=== PATIENT | male | born 1950 | race Caucasian/White ===

== ENCOUNTER 2024-12-17 06:05 | Day surgery (SDC) | payer OTHER ==
[~2024-12-17] VITALS: Ht 182.9 cm; Wt 86.0 kg
[~2024-12-17 06:05] MED LIST: Hytrin1 MG PO; LOPE2C PO; MECL25 PO; METO50ER PO; ONDA4ODT MM; Valium5 MG PO; XARELTO20 MG PO; ZESTORETIC 20-1 EAC1 PO
[2024-12-17] MEDS ORDERED: GABA400 PO (06:21)
[2024-12-17] MEDS ORDERED: Prinivil10 MG PO (06:21)
[2024-12-17] MEDS ORDERED: FINA5 PO (06:21)
[2024-12-17] MEDS ORDERED: Flomax0.4 MG PO (06:22)
[2024-12-17] MEDS ORDERED: NS 1,000 ML IV ONE (06:37)
[2024-12-17 06:38] VITALS: BP 181/110
--- NOTE | 2024-12-17 07:12 | NUR ---
PT DRESSED SELF, IV REMOVED-CANNULA INTACT. PT LEFT FACILITY VIA AMB, CONDITION STABLE.
== END 2024-12-17 23:00 | disposition home or self-care (01) ==
LOC: MHTC 06:05
DX: I48.91 Unspecified atrial fibrillation (principal); I48.92 Unspecified atrial flutter; Z53.9 Procedure and treatment not carried out, unspecified reason
CPT/HCPCS: J7030